=== PATIENT | female | born 2005 | race African-American/Black ===

== ENCOUNTER 2024-09-05 20:47 | Emergency (ER) | payer MEDICAID, OTHER ==
[~2024-09-05] VITALS: Ht 157.5 cm; Wt 100.0 kg
[2024-09-05 20:51] VITALS: TEMP 36.6; O2SAT 98
[2024-09-05 23:14] VITALS: BP 134/76; PULSE 89; RESP 16
[2024-09-05] MEDS: LIDOCAINE 5% PATCH TOP SCH (23:14)
[2024-09-05] MEDS: KETOROLAC 15MG/ML VIAL IM ONE (23:14)
[2024-09-05] MEDS ORDERED: NAPR-1176 MT (23:44)
[2024-09-05] MEDS ORDERED: LIDO-53 TP (23:44)
== END 2024-09-06 01:09 | disposition home or self-care (01) ==
LOC: ER 20:47
DX: S80.12XA Contusion of left lower leg, initial encounter (principal); Z79.1 Long term (current) use of non-steroidal anti-inflammatories (NSAID); X58.XXXA Exposure to other specified factors, initial encounter; Y93.89 Activity, other specified; Y92.89 Other specified places as the place of occurrence of the external cause; Y99.8 Other external cause status
CPT/HCPCS: 99283; 81025; 73590; 96372; J1885